=== PATIENT | male | born 1970 | race American Indian/Alaskan Native ===

== ENCOUNTER 2018-06-25 23:23 | Inpatient (IN) | payer MEDICAID ==
[2018-06-26 00:29] VITALS: BMI 17.2
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
[2018-06-26] MEDS: Multivitamin Vitamin B Complex (Nephro-Vite) Tab GT SCH (07:18)
[2018-06-26] MEDS: levETIRAcetam 100 mg/ml (5ml) Oral Syringe GT SCH ×2 (09:42→19:16)
[2018-06-26 12:34] LABS: BASO % 0.6 % (0.0-2.0); EOS # 0.1 K/uL (0.0-0.7); EOS % 1.4 % (0.0-4.0); HEMOGLOBIN 11.9 g/dL (12.0-18.0); LYMPH # 2.1 K/uL (1.0-4.3); LYMPH % 31.2 % (20.0-40.0); MEAN CELL VOLUME 90.6 fL (80.0-94.0); MEAN CORPUSCULAR HEMOGLOBIN 31.1 pg (27.0-31.0); MEAN CORPUSCULAR HGB CONC 34.4 g/dL (33.0-37.0); MEAN PLATELET VOLUME 7.6 fL (7.2-11.7); MONO # 0.4 K/uL (0.0-0.8); MONO % 6.6 % (0.0-10.0); NEUT % 60.2 % (50.0-75.0); RBC 3.83 Mil/uL (4.40-5.90); RED CELL DISTRIBUTION WIDTH 13.6 % (11.5-14.5); WHITE BLOOD COUNT 6.6 K/uL (4.8-10.8)
[2018-06-26 12:46] LABS: INR 1.2; PROTHROMBIN TIME 12.7 SECONDS (9.7-12.2)
[2018-06-26 12:49] LABS: ALB/GLOB RATIO 1.1 (1.0-2.1); ALBUMIN 3.6 g/dL (3.5-5.0); ALT/SGPT 66 U/L (21-72); AST/SGOT 76 U/L (17-59); BLOOD UREA NITROGEN 15 mg/dL (9-20); CALCIUM 9.3 mg/dl (8.6-10.4); GFR NON-AFRICAN AMERICAN > 60
[2018-06-26] MEDS ORDERED: Propofol 10 mg/ml Inj (20 ML) ONE (13:29)
[2018-06-26] MEDS ORDERED: Lidocaine/Epinephrine 1% 1:100000 10 ML IJ ONE (14:11)
[2018-06-26] MEDS ORDERED: cefTRIAXone 1 gm 1 GM/100 ML BAG IVPB ONE (14:12)
[2018-06-26] MEDS ORDERED: Bacitracin Ointment 30 GM TUBE ONE (14:13)
[2018-06-26] MEDS ORDERED: Absorbable Gelatin Sponge Size 100 ONE (14:13)
[2018-06-26] MEDS ORDERED: Gentamicin Sulfate 10 MG in Sodium Chloride 0.9% 1 ML IN ONE (14:15)
[2018-06-26] MEDS ORDERED: Sodium Chloride 0.9% 1,000 ML IV ONE ×3 (14:20→19:05)
[2018-06-26] MEDS ORDERED: Rocuronium 10 mg/ml (5 ml) ONE (14:48)
[2018-06-26] MEDS ORDERED: Vancomycin 10 MG in Sodium Chloride 0.9% 1 ML IN ONE (15:00)
[2018-06-26] MEDS ORDERED: HYDROmorphone 0.5 mg/0.5 ml ISec IVP PRN (15:19)
[2018-06-26] MEDS ORDERED: Lactated Ringer's 1,000 ML IV SCH (15:45)
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
[2018-06-26 17:05] LABS: FLUID TYPE SPINAL FLUID
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
[2018-06-26 17:38] LABS: CSF VOLUME 4 mL (0-1)
[2018-06-26 17:39] LABS: CSF APPEARANCE CLEAR/COLORLESS (CLEAR)
[2018-06-26] MEDS: Sodium Chloride 0.9% 1,000 ML IV SCH (19:08)
--- NOTE | 2018-06-27 01:03 | OP ---
PROCEDURE DATE: 06/26/2018 PREOPERATIVE DIAGNOSIS: Hydrocephalus. POSTOPERATIVE DIAGNOSIS: Hydrocephalus. PROCEDURE CARRIED OUT: Placement of ventricular peritoneal shunt. SURGEON: Dewey Villalpando MD. I was the co-surgeon for the abdominal portion of the operation. SURGEON: Matthieu Santiago Jr., MD INDICATIONS: The patient is a 47-year-old male who requires a LABORER FILTER PLANT shunt for treatment of hydrocephalus. OPERATIVE FINDINGS: This was done through a transverse right paramedian incision. A long length of catheter, approximately 8 inches was placed in the peritoneal cavity. DESCRIPTION OF PROCEDURE: The patient was given general anesthesia. Simultaneously, the neurosurgeon carried out exposure of the brain in the hydrocephalic portion of the brain. I dissected out the peritoneum. Placed a purse string suture around the rent in the peritoneal cavity. Then, the catheter was positioned deeply inside this and unfurled. After this had been done, we tied the purse string suture with leaving enough rooms that constriction at this point. We then closed the external layers of the anterior abdominal wall with heavy absorbable sutures, and closed the skin with subcuticular closure. Blood loss for the procedure in total was less than 25 mL. Operation carried out was placement of ventricular peritoneal shunt. I was the co-surgeon for the abdominal portion of the operation. Matthieu Santiago Jr., MD
[2018-06-27] MEDS: Sodium Chloride 0.9% 1,000 ML IV SCH ×2 (03:24→13:48)
--- NOTE | 2018-06-27 06:03 | OP ---
PROCEDURE DATE: 06/26/2018 PREOPERATIVE DIAGNOSIS: Hydrocephalus. POSTOPERATIVE DIAGNOSIS: Hydrocephalus. PROCEDURE: Implantation of right ventriculoperitoneal shunt. SURGEON: Dewey Villalpando MD CO-SURGEON: Matthieu Santiago Jr., MD ANESTHESIA: General endotracheal. ESTIMATED BLOOD LOSS: 5 to 10 mL. COMPLICATIONS: None. JUSTIFICATION: The patient was unfortunately status post horrible head injury, was admitted to and cared for at [facility] for sometime. He underwent a craniotomy. He had a PEG placed. It looked like he has a trach. 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 [facility] did not accept him back in transfer. [facility] was not capable of treating this. We transferred him to [facility] for the procedure. The nature of this procedure was explained to the patient's parents, including potential risks and complications, chance of success. All their questions were answered. They fully understood all the above and agreed to proceed. DESCRIPTION OF PROCEDURE: The patient was taken to the operating room, intubated, anesthetized, and placed on the OR table in supine position. Head was placed on a donut, turned maximally towards the left. The area above and behind the right ear was hair clipped. This entire area with the right neck, throat, chest, and abdomen all scrubbed with acetone and scrubbed, painted, and draped in the usual sterile manner. A curvilinear incision was made around reach point 3 cm up and back from the top of the right pinna. This was infiltrated with local anesthetic. Incision was made with a #15 blade knife, carried down at the level of the cranium. Sand Screener Operator was used to make one bur hole directly into each point. A curved Ronquillo was used to fashion a pocket in a subcutaneous layer just below the distal inferior end of the incision. At this point, we passed the shunt passer. Dr. Santiago had simultaneously opened up the abdomen and to the peroneum. The peritoneal catheter was then passed from the cranial wound to the abdominal wound and was flushed through with antibiotic solution. The distal slit valves were cut off it leaving an open-end too. The proximal end then connected to a programmable Delta valve that had been preset to a 1.5 pressure setting. This was hooked up and cinched in place with a 2-0 silk tie. At this point, the ventricular catheter was introduced aiming towards to the right inner canthus. Clear CSF under high pressure was obtained on the first pad. Approximately 10 mL was collected and sent to pathology. The catheter was then trimmed. I injected 10 mg of vancomycin and 10 mg of gentamicin directly into the ventricle. The ventricular catheter was then connected to the proximal end of the valve and stitched in place with a 2-0 silk tie. At this point, Dr. Santiago gently pulled the distal end of the peritoneal catheter which allowed me to carefully place the valve assembly into the previously fashioned pocket, inferior to the skin incision and instilled very nicely. Lastly, I pumped the valve mechanism several times, and clear fluid emerging from the distal end of the catheter, at which point, Dr. Santiago buried that into the peritoneum which will be dictated on the separate cover. The cranial incision was irrigated with antibiotic solution. The bur hole was instilled with Gelfoam. Galea was closed using 3-0 Vicryl. The skin was closed with joao, bacitracin ointment, and heavy dressing was placed. The patient was aroused from anesthesia and extubated, was brought to the recovery room in satisfactory condition. All counts were correct. There were no complications. Dewey Villalpando MD
[2018-06-27 06:14] LABS: BASO % 0.3 % (0.0-2.0); EOS # 0.1 K/uL (0.0-0.7); EOS % 0.8 % (0.0-4.0); HEMOGLOBIN 11.2 g/dL (12.0-18.0); LYMPH % 11.5 % (20.0-40.0); MEAN CELL VOLUME 90.4 fL (80.0-94.0); MEAN CORPUSCULAR HEMOGLOBIN 30.6 pg (27.0-31.0); MEAN CORPUSCULAR HGB CONC 33.9 g/dL (33.0-37.0); MEAN PLATELET VOLUME 6.9 fL (7.2-11.7); MONO # 0.5 K/uL (0.0-0.8); MONO % 6.2 % (0.0-10.0); NEUT # 6.7 K/uL (1.8-7.0); NEUT % 81.2 % (50.0-75.0); RBC 3.67 Mil/uL (4.40-5.90); RED CELL DISTRIBUTION WIDTH 13.4 % (11.5-14.5); WHITE BLOOD COUNT 8.3 K/uL (4.8-10.8)
[2018-06-27 06:34] LABS: ALBUMIN 3.2 g/dL (3.5-5.0); ALT/SGPT 48 U/L (21-72); AST/SGOT 46 U/L (17-59); BLOOD UREA NITROGEN 9 mg/dL (9-20); CALCIUM 8.7 mg/dl (8.6-10.4); GFR NON-AFRICAN AMERICAN > 60
[2018-06-27] MEDS: Multivitamin Vitamin B Complex (Nephro-Vite) Tab GT SCH (07:46)
--- NOTE | 2018-06-27 07:54 | CP.PCM.PN ---
Subjective - Date & Time of Evaluation Date of Evaluation: 06/27/18 Time of Evaluation: 07:52 - Subjective Subjective: POD 1 more alert than preop eyes open tracking no command following purposefull movements Dsg c and d REc trans to floor OOB ss - dc planning Objective - Vital Signs/Intake and Output Vital Signs (last 24 hours): Temp Pulse Resp BP Pulse Ox 98.7 F 87 12 108/75 100 06/26/18 16:45 06/27/18 07:08 06/27/18 07:08 06/27/18 07:08 06/27/18 07:08 Intake and Output: 06/27/18 06/27/18 06:59 18:59 Intake Total 1200 100 Output Total 750 Balance 450 100 - Medications Medications: Current Medications Acetaminophen (Tylenol 325mg Tab) 650 mg GT Q6 PRN PRN Reason: Pain, moderate (4-7) Sodium Chloride (Sodium Chloride 0.9%) 1,000 mls @ 100 mls/hr IV .Q10H [facility] Last Admin: 06/27/18 03:24 Dose: 100 mls/hr Levetiracetam (Keppra) 750 mg GT BID [facility] Last Admin: 06/26/18 19:16 Dose: 750 mg Ondansetron HCl (Zofran Inj) 4 mg IVP Q6 PRN PRN Reason: Nausea/Vomiting Pantoprazole Sodium (Protonix Inj) 40 mg IVP DAILY [facility] Last Admin: 06/26/18 19:08 Dose: 40 mg Vitamin B Complex/Vit C/Folic Acid (Nephro-Ritesh) 1 tab GT 0800 [facility] Last Admin: 06/27/18 07:46 Dose: 1 tab - Labs Labs: 06/27/18 05:56 06/27/18 05:56 PT 12.7 SECONDS (9.7-12.2) H 06/26/18 12:18 INR 1.2 06/26/18 12:18 APTT 32 SECONDS (21-34) 06/26/18 12:18
--- NOTE | 2018-06-27 09:10 | CP.PCM.PN ---
Subjective - Date & Time of Evaluation Date of Evaluation: 06/27/18 Time of Evaluation: 08:45 - Subjective Subjective: Hospitalist Progress Note Patient was seen and examined at 8:45 AM ICU Bed #18 06/27/18 47 year old male with history of traumatic brain injury requiring placement of RESERVE OPERATOR shunt by Neurosurgery Dr. Villalpando on 06/26/18. He opens his eyes in response to calling his name and nods his head NO to some questions (ROS: NO chest pain, NO dyspnea, NO abdominal pain) but not to others and does not follow commands at the time of my exam. General: Asleep but arousable. NON verbal HEENT: Left Pupil slightly larger in diameter than the Right Pupil but both are round and reactive to light. Nasal Turbinates are moist, NO lymphadenopathy in c ervical/submandibular/suprclavicular area, NO thyromegaly, Prior Trach Scar? Cardio: NS1 and NS2, NO M/R/G Resp: CTA B/L, NO R/R/W but is limited by lack of patient taking in deep breaths GI: BSx4, NONdistending, Patient does not wince in pain or move away from hands upon palpation, PEG Tube insertion site without evidence of surrounding cellulitis and no exudate noted, RLQ surgical incision with steristrip from RESERVE OPERATOR shunt is dry and there is no dehiscence noted Ext: Pulses are strong and equal bilateral UE and LE, NO edema noted, Capillary refill is 2 seconds, Warm, Flexion contraction of the bilateral hands and fingers with pill rolling tremor, Bilateral Feet are plantar flexed. Neuro Exam: not possible at this time Assessments: 1). Traumatic Brain Injury with Hydrocephalus and Left Frontal Hemorrhage 2). Seizures Patient was transferred to [facility] for RESERVE OPERATOR Shunt Placement as this could not be performed at [facility] and as there were no beds available at [facility] in [place], [place]. Spoke with MARLI Fry who works with Dr. Lonny Ashley at [place] on 06/25/18 and explained that once patient is stable after RESERVE OPERATOR Shunt Placement, he would be transferred back to their service. Patient is status post RESERVE OPERATOR shunt placement by Neurosurgery Dr. Villalpando on 06/26/18 Continue Keppra 750 mg GI BID, Zofran 4 mg IV PRN N/V, NS at 100 ml/hr, Vitamin B Complex 1 tab GI xday Vitals are stable Patient is stable for transfer back to [facility] to service of Dr. Lonny Ashley for further monitoring, management, and discharge planning Stanley Fuller D.O. Objective - Vital Signs/Intake and Output Vital Signs (last 24 hours): Temp Pulse Resp BP Pulse Ox 98.7 F 78 9 L 111/65 100 06/26/18 16:45 06/27/18 08:08 06/27/18 08:08 06/27/18 08:08 06/27/18 08:08 Intake and Output: 06/27/18 06/27/18 06:59 18:59 Intake Total 1200 200 Output Total 750 Balance 450 200 - Medications Medications: Current Medications Acetaminophen (Tylenol 325mg Tab) 650 mg GT Q6 PRN PRN Reason: Pain, moderate (4-7) Sodium Chloride (Sodium Chloride 0.9%) 1,000 mls @ 100 mls/hr IV .Q10H [facility] Last Admin: 06/27/18 03:24 Dose: 100 mls/hr Levetiracetam (Keppra) 750 mg GT BID [facility] Last Admin: 06/26/18 19:16 Dose: 750 mg Ondansetron HCl (Zofran Inj) 4 mg IVP Q6 PRN PRN Reason: Nausea/Vomiting Pantoprazole Sodium (Protonix Inj) 40 mg IVP DAILY [facility] Last Admin: 06/26/18 19:08 Dose: 40 mg Vitamin B Complex/Vit C/Folic Acid (Nephro-Ritesh) 1 tab GT 0800 [facility] Last Admin: 06/27/18 07:46 Dose: 1 tab - Labs Labs: 06/27/18 05:56 06/27/18 05:56 PT 12.7 SECONDS (9.7-12.2) H 06/26/18 12:18 INR 1.2 06/26/18 12:18 APTT 32 SECONDS (21-34) 06/26/18 12:18
--- NOTE | 2018-06-27 09:13 | CT ---
Date of service: 06/26/2018 PROCEDURE: CT HEAD WITHOUT CONTRAST. HISTORY: r/o CVA COMPARISON: None available. TECHNIQUE: Axial computed tomography images were obtained through the head/brain without intravenous contrast. Radiation dose: Total exam DLP = 995.27 mGy-cm. This CT exam was performed using one or more of the following dose reduction techniques: Automated exposure control, adjustment of the mA and/or kV according to patient size, and/or use of iterative reconstruction technique. FINDINGS: HEMORRHAGE: No intracranial hemorrhage. BRAIN: There is linear gliosis in the right frontal lobe related to an old shunt catheter tract. There is cystic encephalomalacia and gliosis in the left peripheral frontal lobe.. There is no mass, mass effect or abnormal extra-axial fluid collection. There is no territorial infarction. The midline sagittal structures are normal. VENTRICLES: Right trans parietal shunt catheter terminates in the frontal horn of the left lateral ventricle. There is severe dilatation of lateral, 3rd and 4th ventricles with periventricular edema.. CALVARIUM: Status post occipital craniectomy. PARANASAL SINUSES: Predominantly clear. MASTOID AIR CELLS: The right mastoid air cells are clear. There fluid in the left mastoid tip. OTHER FINDINGS: None. IMPRESSION: Status post right trans parietal shunt catheter which terminates in the frontal horn of the left lateral ventricle. 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
[2018-06-27] MEDS: levETIRAcetam 100 mg/ml (5ml) Oral Syringe GT SCH ×2 (09:28→17:30)
[2018-06-27 16:10] VITALS: TEMP 97.3
[2018-06-27 17:07] VITALS: RESP 14
[2018-06-27 18:01] VITALS: BP 103/68
--- NOTE | 2018-06-27 19:06 | CP.PCM.DIS ---
Provider - Provider Date of Admission: 06/25/18 23:30 Attending physician: Stanley Fuller MD Consults: 06/26/18 05:06 Neurology Consult Routine Comment: Consulting Provider: Dewey Villalpando Consulting Physician: Dewey Villalpando Reason for Consult: Transfer from [facility], POLICY INTERN shunt 06/26, hydrocephalus 06/26/18 07:42 Wound Care [Nursing Referral for Wound Care] Routine Comment: Physician Instructions: Reason For Exam: sacral ulcer Time Spent in preparation of Discharge (in minutes): 40 Hospital Course - Lab Results Lab Results: Micro Results 06/26/18 17:34 Nose MRSA Culture (Admit) - Final MRSA NOT DETECTED 06/26/18 17:02 Cerebral Spinal Fluid Gram Stain - Final 06/26/18 17:02 Cerebral Spinal Fluid CSF Culture - Preliminary NO GROWTH AFTER 24 HOURS Most Recent Lab Values WBC 8.3 K/uL (4.8-10.8) 06/27/18 05:56 RBC 3.67 Mil/uL (4.40-5.90) L 06/27/18 05:56 Hgb 11.2 g/dL (12.0-18.0) L 06/27/18 05:56 Hct 33.1 % (35.0-51.0) L 06/27/18 05:56 MCV 90.4 fL (80.0-94.0) 06/27/18 05:56 MCH 30.6 pg (27.0-31.0) 06/27/18 05:56 MCHC 33.9 g/dL (33.0-37.0) 06/27/18 05:56 RDW 13.4 % (11.5-14.5) 06/27/18 05:56 Plt Count 325 K/uL (130-400) 06/27/18 05:56 MPV 6.9 fL (7.2-11.7) L 06/27/18 05:56 Neut % (Auto) 81.2 % (50.0-75.0) H 06/27/18 05:56 Lymph % (Auto) 11.5 % (20.0-40.0) L 06/27/18 05:56 [place] % (Auto) 6.2 % (0.0-10.0) 06/27/18 05:56 Eos % (Auto) 0.8 % (0.0-4.0) 06/27/18 05:56 Baso % (Auto) 0.3 % (0.0-2.0) 06/27/18 05:56 Neut # (Auto) 6.7 K/uL (1.8-7.0) 06/27/18 05:56 Lymph # (Auto) 1.0 K/uL (1.0-4.3) 06/27/18 05:56 [place] # (Auto) 0.5 K/uL (0.0-0.8) 06/27/18 05:56 Eos # (Auto) 0.1 K/uL (0.0-0.7) 06/27/18 05:56 Baso # (Auto) 0.0 K/uL (0.0-0.2) 06/27/18 05:56 PT 12.7 SECONDS (9.7-12.2) H 06/26/18 12:18 INR 1.2 06/26/18 12:18 APTT 32 SECONDS (21-34) 06/26/18 12:18 Sodium 136 mmol/L (132-148) 06/27/18 05:56 Potassium 3.7 mmol/L (3.6-5.2) 06/27/18 05:56 Chloride 102 mmol/L (98-107) 06/27/18 05:56 Carbon Dioxide 26 mmol/L (22-30) 06/27/18 05:56 Anion Gap 11 (10-20) 06/27/18 05:56 BUN 9 mg/dL (9-20) 06/27/18 05:56 Creatinine 0.5 mg/dL (0.8-1.5) L 06/27/18 05:56 Est GFR ( Amer) > 60 06/27/18 05:56 Est GFR (Non-Af Amer) > 60 06/27/18 05:56 POC Glucose (mg/dL) 109 mg/dL (65-110) 06/27/18 15:55 Random Glucose 97 mg/dL (75-110) 06/27/18 05:56 Lactic Acid < 0.5 mmol/L (0.7-2.1) L 06/27/18 05:59 Calcium 8.7 mg/dl (8.6-10.4) 06/27/18 05:56 Phosphorus 3.5 mg/dL (2.5-4.5) 06/27/18 05:56 Magnesium 1.6 mg/dL (1.6-2.3) 06/27/18 05:56 Total Bilirubin 0.6 mg/dL (0.2-1.3) 06/27/18 05:56 AST 46 U/L (17-59) 06/27/18 05:56 ALT 48 U/L (21-72) 06/27/18 05:56 Alkaline Phosphatase 66 U/L (38-126) 06/27/18 05:56 Troponin I < 0.0120 ng/mL (0.00-0.120) 06/26/18 17:34 Total Protein 6.2 g/dL (6.3-8.3) L 06/27/18 05:56 Albumin 3.2 g/dL (3.5-5.0) L 06/27/18 05:56 Globulin 3.1 gm/dL (2.2-3.9) 06/27/18 05:56 Albumin/Globulin Ratio 1.0 (1.0-2.1) 06/27/18 05:56 Fluid Type Spinal fluid 06/26/18 17:02 CSF Volume 4 mL (0-1) H 06/26/18 17:02 CSF Appearance Clear/colorless (CLEAR) 06/26/18 17:02 CSF WBC 1.0 /mm3 (0.0-5.0) 06/26/18 17:02 CSF RBC 31.0 /mm3 (0.0-0.0) H 06/26/18 17:02 CSF Total Cell Counted TEST NOT PERFORMED 06/26/18 17:02 CSF Monos/Macrophages TEST NOT PERFORMED 06/26/18 17:02 CSF Comment 06/26/18 17:02 CSF Glucose 64 mg/dL (40-70) 06/26/18 17:02 HIV 1&2 Antibody Screen Negative (NEGATIVE) 06/27/18 05:56 - Hospital Course Hospital Course: Hospitalist Discharge Note Patient was seen and examined at 8:45 AM ICU Bed #18 06/27/18 47 year old male with history of traumatic brain injury requiring placement of POLICY INTERN shunt by Neurosurgery Dr. Villalpando on 06/26/18. He opens his eyes in response to calling his name and nods his head NO to some questions (ROS: NO chest pain, NO dyspnea, NO abdominal pain) but not to others and does not follow commands at the time of my exam. General: Asleep but arousable. NON verbal HEENT: Left Pupil slightly larger in diameter than the Right Pupil but both are round and reactive to light. Nasal Turbinates are moist, NO lymphadenopathy in cervical/submandibular/suprclavicular area, NO thyromegaly, Prior Trach Scar? Cardio: NS1 and NS2, NO M/R/G Resp: CTA B/L, NO R/R/W but is limited by lack of patient taking in deep breaths GI: BSx4, NONdistending, Patient does not wince in pain or move away from hands upon palpation, PEG Tube insertion site without evidence of surrounding cellulitis and no exudate noted, RLQ surgical incision with steristrip from POLICY INTERN shunt is dry and there is no dehiscence noted Ext: Pulses are strong and equal bilateral UE and LE, NO edema noted, Capillary refill is 2 seconds, Warm, Flexion contraction of the bilateral hands and fingers with pill rolling tremor, Bilateral Feet are plantar flexed. Neuro Exam: not possible at this time Assessments: 1). Traumatic Brain Injury with Hydrocephalus and Left Frontal Hemorrhage 2). Seizures Patient was transferred to [facility] for POLICY INTERN Shunt Placement as this could not be performed at [facility] and as there were no beds available at [facility] in [place], [place]. Spoke with MARLI Fry who works with Dr. Lonny Ashley at [place] on 06/25/18 and explained that once patient is stable after POLICY INTERN Shunt Placement, he would be transferred back to their service. Patient is status post POLICY INTERN shunt placement by Neurosurgery Dr. Villalpando on 06/26/18 Continue Keppra 750 mg GI BID, Zofran 4 mg IV PRN N/V, NS at 100 ml/hr, Vitamin B Complex 1 tab GI 1/ Vitals are stable Patient is stable for transfer back to [facility] to service of Dr. Lonny Ashley for further monitoring, management, and discharge planning Stanley Fuller D.O. Discharge Exam - Head Exam Head Exam: ATRAUMATIC, NORMAL INSPECTION Discharge Plan - Follow Up Plan Condition: GOOD Disposition: HOME/ ROUTINE
[2018-06-27 19:39] VITALS: PULSE 101; O2SAT 99
[2018-06-27] MEDS ORDERED: HYDROmorphone 0.5 mg/0.5 ml ISec IVP STA (19:58)
== END 2018-06-27 21:34 | DRG 2 ==
LOC: C.6T 23:30 → UNDOADMIN 23:40 → C.9I 06-26 16:50
PROVIDERS: ADMIT Family Medicine; ATTEND Family Medicine
PROC: 00160J6 Bypass Cerebral Ventricle to Peritoneal Cavity with Synthetic Substitute, Open Approach (ICD-10-PCS; principal; 2018-06-25)
DX: G91.9 Hydrocephalus, unspecified (principal); G40.909 Epilepsy, unspecified, not intractable, without status epilepticus; Z87.820 Personal history of traumatic brain injury; Z74.01 Bed confinement status; Z93.1 Gastrostomy status